=== PATIENT | female | born 1955 | race African-American/Black ===

== ENCOUNTER 2016-12-30 15:22 | Emergency (ER) | payer MEDICAID, OTHER ==
[~2016-12-30] VITALS: Ht 160 cm; Wt 60.0 kg
[~2016-12-30 15:22] MED LIST: ASPI-1160 PO; HYDR12.518 PO; TOPXL5 PO
[2016-12-30] MEDS ORDERED: MORPHINE SULFATE 4 MG/ML CPJ (NOT FOR IM USE) IV ONE (19:30)
[2016-12-30 19:54] LABS: BASOPHILS % 0.6 % (0.0-2.0); EOSINOPHILS % 0.8 % (0.0-5.0); HEMOGLOBIN. 13.5 g/dL (12.0-16.0); LYMPHOCYTES % 40.5 % (20.0-50.0); MEAN CORPUSCULAR HEMOGLOBIN 29.6 pg (28.0-32.0); MEAN CORPUSCULAR VOLUME 87.3 fL (81.0-99.0); MEAN PLATELET VOLUME 9.7 fl (7.4-10.4); MONOCYTES % 6.1 % (2.0-8.0); PLATELET 190 x1000/uL (130-400); RED BLOOD CELL COUNT 4.58 mill/uL (4.2-5.4); RED CELL DISTRIBUTION WIDTH 13.8 % (11.6-14.6)
[2016-12-30 20:05] LABS: INR 1.1; PARTIAL THROMBOPLASTIN TIME 25.5 sec (23.4-31.0); PROTHROMBIN TIME 11.2 sec (9.4-11.6)
[2016-12-30 20:06] LABS: CHLORIDE 105 mEq/L (98-107)
[2016-12-30 20:10] LABS: CARBON DIOXIDE 27 mEq/L (21-32)
[2016-12-30 20:16] LABS: TROPONIN I < 0.02 ng/mL (0.00-0.04)
[2016-12-30] MEDS ORDERED: HYDROCODONE/APAP 7.5/325MG 1 TAB TABLET PO ONE (20:30)
[2016-12-30 23:51] VITALS: BP 128/69
== END 2016-12-30 23:52 | disposition home or self-care (01) ==
LOC: ER 15:59
DX: R07.9 Chest pain, unspecified (principal); R51 Headache; I10 Essential (primary) hypertension; F12.10 Cannabis abuse, uncomplicated; Z98.51 Tubal ligation status; Z79.82 Long term (current) use of aspirin
CPT/HCPCS: 36415; 70450; 71010; 80053; 83690; 84484; 85025; 85610; 85730; 93005; 96374; 99285; J2270; Z7610

== ENCOUNTER 2017-02-09 06:18 | Inpatient (IN) | payer OTHER ==
[~2017-02-09] VITALS: Ht 170.2 cm; Wt 96.2 kg
[2017-02-09] MEDS ORDERED: ASPIRIN 81MG TABLET PO STA (07:08)
[2017-02-09 07:40] LABS: CHLORIDE 105 mEq/L (98-107)
[2017-02-09 07:49] LABS: BASOPHILS % 0.5 % (0.0-2.0); CARBON DIOXIDE 30 mEq/L (21-32); EOSINOPHILS % 0.9 % (0.0-5.0); HEMATOCRIT. 42.2 % (36.0-48.0); HEMOGLOBIN. 14.3 g/dL (12.0-16.0); LYMPHOCYTES % 30.4 % (20.0-50.0); MEAN CORPUSCULAR VOLUME 88.6 fL (81.0-99.0); MEAN PLATELET VOLUME 10.3 fl (7.4-10.4); MONOCYTES % 6.6 % (2.0-8.0); NEUTROPHILS % 61.6 % (40.0-76.0); PLATELET 170 x1000/uL (130-400); RED BLOOD CELL COUNT 4.76 mill/uL (4.2-5.4); TROPONIN I < 0.02 ng/mL (0.00-0.04)
[2017-02-09 07:54] LABS: INR 1.1; PARTIAL THROMBOPLASTIN TIME 25.3 sec (23.4-31.0)
[2017-02-09] MEDS ORDERED: ONDANSETRON HCL 4MG/2ML VIAL IV ONE (08:00)
[2017-02-09] MEDS ORDERED: MORPHINE SULFATE 10 MG/ML CPJ IV ONE (08:00)
[2017-02-09 09:45] VITALS: BP 117/69
[2017-02-09] MEDS ORDERED: GUAIFENESIN 200MG/10ML SUGAR FREE UDC PO PRN (09:45)
[2017-02-09] MEDS ORDERED: CLONIDINE 0.1MG TABLET PO PRN (09:45)
[2017-02-09] MEDS ORDERED: ONDANSETRON HCL 4MG/2ML VIAL IV PRN (09:45)
[2017-02-09] MEDS ORDERED: HYDROCODONE/ACETAMINOPHEN 5/325MG TABLET PO PRN (09:45)
[2017-02-09] MEDS ORDERED: ACETAMINOPHEN 325MG TABLET PO PRN (09:45)
[2017-02-09] MEDS ORDERED: LORAZEPAM 2MG/ML CPJ IV PRN (09:45)
[2017-02-09] MEDS ORDERED: NA PHOS,M-B/NA PHOS,DI-BA ENEMA 118ML PR PRN (09:45)
[2017-02-09] MEDS ORDERED: DOCUSATE SODIUM 100MG CAPSULE PO PRN (09:45)
[2017-02-09] MEDS ORDERED: DIPHENHYDRAMINE 50MG/ML VIAL IV PRN (09:45)
[2017-02-09] MEDS ORDERED: IPRATROPIUM/ALBUTEROL 0.5-3(2.5)MG/3ML NEB INH PRN (09:45)
[2017-02-09] MEDS ORDERED: MAGNESIUM/ALUMINUM HYDROXIDE/SIMETHICONE 30ML UDC PO PRN (09:45)
[2017-02-09] MEDS ORDERED: MORP15TA67 PO (09:52)
[2017-02-09] MEDS ORDERED: HYDR-519 PO (09:56)
[2017-02-09] MEDS ORDERED: LORA10TA7 PO (09:56)
[2017-02-09] MEDS ORDERED: TRIA1TAB94 PO (09:56)
[2017-02-09] MEDS ORDERED: NAPR-681 PO (09:56)
[2017-02-09] MEDS ORDERED: TRAM50TA3 PO (09:56)
[2017-02-09] MEDS ORDERED: CLON0.2T PO (09:56)
[2017-02-09] MEDS ORDERED: DEXTROSE 50% WATER 50ML SYRINGE IV PRN (10:00)
[2017-02-09] MEDS ORDERED: REGADENOSON 0.4 MG/5 ML IV ONE (10:45)
[2017-02-09 11:27] VITALS: BP 117/69
[2017-02-09 11:44] LABS: CARBON DIOXIDE 28 mEq/L (21-32); CHLORIDE 105 mEq/L (98-107)
[2017-02-09] MEDS: BLOOD SUGAR DIAGNOSTIC STRIP TEST SCH ×3 (12:23→20:19)
[2017-02-09 12:45] VITALS: BP 107/56
[2017-02-09 12:46] LABS: T4 FREE 1.14 ng/dL (0.76-1.46)
[2017-02-09] MEDS: INSULIN LISPRO 100 UNITS/ML SUBCUT SCH ×3 (12:49→20:19)
[2017-02-09] MEDS: ENOXAPARIN 40MG/0.4ML SYR SUBCUT SCH (13:47)
[2017-02-09] MEDS: HYDROMORPHONE HCL/PF 2MG/ML CPJ IV PRN ×2 (14:55→22:07)
[2017-02-09 15:26] LABS: CREATINE KINASE 365 IU/L (26-192); CREATINE KINASE MB FRACTION 4.3 ng/mL (0.5-3.6); TROPONIN I < 0.02 ng/mL (0.00-0.04)
[2017-02-09 16:28] VITALS: BP 127/64
[2017-02-09 17:44] LABS: CLARITY URINE CLOUDY (CLEAR); COLOR URINE DARK YELLOW (YELLOW); GLUCOSE URINE NEGATIVE (NEGATIVE); KETONES URINE TRACE (NEGATIVE); LEUKOCYTE ESTERASE URINE NEGATIVE (NEGATIVE); NITRITE URINE NEGATIVE (NEGATIVE); OCCULT BLOOD URINE NEGATIVE (NEGATIVE); PROTEIN URINE NEGATIVE (NEGATIVE); SPECIFIC GRAVITY URINE 1.038 (1.005-1.030)
[2017-02-09 18:35] LABS: *AMPHETAMINES SCREEN URINE NEGATIVE (NEGATIVE); *BARBITURATES SCREEN URINE NEGATIVE (NEGATIVE); *BENZODIAZEPINES SCREEN URINE NEGATIVE (NEGATIVE); *COCAINE SCREEN URINE NEGATIVE (NEGATIVE); CANNABINOID URINE SCREEN PRESUMTIVE POSITIVE (NEGATIVE); METHADONE URINE SCREEN NEGATIVE (NEGATIVE); OPIATES URINE SCREEN PRESUMTIVE POSITIVE (NEGATIVE); PHENCYCLIDINE URINE SCREEN NEGATIVE (NEGATIVE)
[2017-02-09 20:00] VITALS: BP 146/58
[2017-02-09] MEDS ORDERED: ZOLPIDEM TARTRATE 5MG TABLET PO PRN (20:45)
[2017-02-10] VITALS: BP 134/61
[2017-02-10 00:38] LABS: CREATINE KINASE 354 IU/L (26-192); CREATINE KINASE MB FRACTION 3.8 ng/mL (0.5-3.6); TROPONIN I < 0.02 ng/mL (0.00-0.04)
[2017-02-10] MEDS: HYDROMORPHONE HCL/PF 2MG/ML CPJ IV PRN ×2 (01:59→10:19)
[2017-02-10 04:00] VITALS: BP 186/74
[2017-02-10] MEDS: BLOOD SUGAR DIAGNOSTIC STRIP TEST SCH ×2 (06:56→12:20)
[2017-02-10 07:23] VITALS: BP 194/87
[2017-02-10 07:44] LABS: BASOPHILS % 0.3 % (0.0-2.0); EOSINOPHILS % 1.1 % (0.0-5.0); HEMATOCRIT. 41.8 % (36.0-48.0); HEMOGLOBIN. 14.1 g/dL (12.0-16.0); MEAN CORPUSCULAR HEMOGLOBIN 29.8 pg (28.0-32.0); MEAN CORPUSCULAR VOLUME 88.3 fL (81.0-99.0); MEAN PLATELET VOLUME 10.1 fl (7.4-10.4); MONOCYTES % 7.6 % (2.0-8.0); PLATELET 151 x1000/uL (130-400); RED BLOOD CELL COUNT 4.73 mill/uL (4.2-5.4); RED CELL DISTRIBUTION WIDTH 13.6 % (11.6-14.6)
[2017-02-10] MEDS: INSULIN LISPRO 100 UNITS/ML SUBCUT SCH ×2 (07:50→12:50)
[2017-02-10] MEDS ORDERED: ASPIRIN 81MG TABLET PO SCH (09:00)
[2017-02-10] MEDS: ENOXAPARIN 40MG/0.4ML SYR SUBCUT SCH (09:00)
[2017-02-10] MEDS ORDERED: ASPIRIN 81MG EC TABLET PO SCH (09:00)
[2017-02-10 09:03] LABS: CARBON DIOXIDE 27 mEq/L (21-32); CHLORIDE 103 mEq/L (98-107); CREATINE KINASE 355 IU/L (26-192); CREATINE KINASE MB FRACTION 4.3 ng/mL (0.5-3.6); HDL CHOLESTEROL 24 mg/dL (40-59); LDL CHOLESTEROL 94 mg/dL (5-100)
[2017-02-10] MEDS ORDERED: CLONIDINE 0.2MG TABLET PO SCH (09:15)
[2017-02-10 11:18] VITALS: BP 129/78
[2017-02-10] MEDS ORDERED: REGADENOSON 0.4 MG/5 ML IV ONE (12:34)
[2017-02-10 14:55] VITALS: BP 129/78
== END 2017-02-10 15:20 | disposition home or self-care (01) | DRG 201 ==
LOC: ER 06:18 → 6WST 07:40 → EDBEDREQ 07:44 → EDBEDREQTM 07:44 → ENRESERV 08:28
PROVIDERS: ADMIT Internal Medicine; ATTEND Internal Medicine
DX: I48.1 Persistent atrial fibrillation (principal); I10 Essential (primary) hypertension; I25.10 Atherosclerotic heart disease of native coronary artery without angina pectoris; E11.9 Type 2 diabetes mellitus without complications; E78.5 Hyperlipidemia, unspecified; F17.210 Nicotine dependence, cigarettes, uncomplicated; I25.2 Old myocardial infarction; Z79.82 Long term (current) use of aspirin; Z79.899 Other long term (current) drug therapy; Z88.8 Allergy status to other drugs, medicaments and biological substances; Z98.51 Tubal ligation status
CPT/HCPCS: 36415; 71010; 78452; 80048; 80053; 80061; 80305; 81001; 82550; 82553; 82962; 83036; 83880; 84439; 84443; 84484; 85025; 85379; 85610; 85730; 87086; 93005; 93017; 96374; 96375; 99285; A9500; J1170; J1650; J2060; J2270; J2405; J2785

== ENCOUNTER 2020-03-07 17:56 | Inpatient (IN) | payer MEDICARE, MEDICAID ==
[~2020-03-07] VITALS: Ht 170.2 cm; Wt 94.1 kg
[~2020-03-07 17:56] MED LIST changes: -ASPI-1160 PO; +CLON0.2T PO; +HYDR-519 PO; -HYDR12.518 PO; +LORA10TA7 PO; +MORP15TA67 PO; +NAPR-681 PO; -TOPXL5 PO; +TRAM50TA3 PO; +TRIA1TAB94 PO
[2020-03-07 19:12] LABS: BASOPHILS % 0.6 % (0.0-2.0); EOSINOPHILS % 0.6 % (0.0-5.0); HEMATOCRIT. 41.6 % (36.0-48.0); LYMPHOCYTES % 29.4 % (20.0-50.0); MEAN CORPUSCULAR HEMOGLOBIN 29.4 pg (28.0-32.0); MEAN CORPUSCULAR VOLUME 87.2 fL (81.0-99.0); MEAN PLATELET VOLUME 9.3 fl (7.4-10.4); MONOCYTES % 8.1 % (2.0-8.0); NEUTROPHILS % 61.3 % (40.0-76.0); PLATELET 216 x1000/uL (130-400); RED BLOOD CELL COUNT 4.77 mill/uL (4.2-5.4); RED CELL DISTRIBUTION WIDTH 14.4 % (11.6-14.6)
[2020-03-07 19:19] LABS: CHLORIDE 106 mEq/L (98-107)
[2020-03-07 19:25] LABS: PROTHROMBIN TIME 10.6 sec (9.6-11.0)
[2020-03-07] MEDS ORDERED: MORPHINE SULFATE 4 MG/ML CPJ (NOT FOR IM USE) IV STA (20:23)
[2020-03-07] MEDS ORDERED: ONDANSETRON HCL 4MG/2ML INJ IV STA (20:23)
[2020-03-07] MEDS ORDERED: SODIUM CHLORIDE 0.9% 1,000 ML IV ONE (20:30)
[2020-03-07 23:26] LABS: CLARITY URINE CLEAR (CLEAR); COLOR URINE YELLOW (YELLOW); KETONES URINE NEGATIVE (NEGATIVE); LEUKOCYTE ESTERASE URINE TRACE (NEGATIVE); NITRITE URINE NEGATIVE (NEGATIVE); OCCULT BLOOD URINE NEGATIVE (NEGATIVE); PROTEIN URINE NEGATIVE (NEGATIVE); SPECIFIC GRAVITY URINE 1.021 (1.005-1.030)
[2020-03-07] MEDS ORDERED: ASPIRIN 81MG TABLET PO ONE (23:45)
[2020-03-08] MEDS ORDERED: CEFTRIAXONE 1 G PREMIX 50 ML IV ONE (01:00)
[2020-03-08] MEDS ORDERED: MORPHINE SULFATE 4 MG/ML CPJ (NOT FOR IM USE) IV NR (01:00)
[2020-03-08] MEDS ORDERED: ONDANSETRON HCL 4MG/2ML INJ IV NR (01:00)
[2020-03-08 05:35] VITALS: BP 153/46
[2020-03-08] MEDS ORDERED: MORP15TA54 PO (06:44)
[2020-03-08] MEDS ORDERED: OXYC10TA48 PO (06:44)
[2020-03-08] MEDS ORDERED: METF-414 PO (06:44)
[2020-03-08] MEDS ORDERED: CLON-457 PO (06:44)
[2020-03-08] MEDS ORDERED: NIFE-33 PO (06:44)
[2020-03-08] MEDS ORDERED: HYDR-4135 PO (06:44)
[2020-03-08 08:00] VITALS: BP 164/65
[2020-03-08] MEDS ORDERED: OXYCODONE HCL 5MG TABLET PO PRN (08:15)
[2020-03-08] MEDS: ONDANSETRON HCL 4MG/2ML INJ IV PRN (08:29)
[2020-03-08] MEDS: NIFEDIPINE XL 30MG TAB PO SCH (08:29)
[2020-03-08 12:00] VITALS: BP 124/76
[2020-03-08] MEDS ORDERED: KETOROLAC 30MG/ML VIAL IV PRN (12:30)
[2020-03-08] MEDS ORDERED: POTASSIUM CHLORIDE 20MEQ TABLET SR PO NR (12:30)
[2020-03-08] MEDS: HYDRALAZINE HCL 50MG TABLET PO SCH ×2 (13:00→20:29)
[2020-03-08 16:00] VITALS: BP 105/78
[2020-03-08 16:00] LABS: HEPATITIS B SURFACE ANTIGEN NEGATIVE
[2020-03-08] MEDS ORDERED: TRAMADOL 50MG TABLET PO PRN (16:15)
[2020-03-08 16:30] LABS: HEPATITIS A AB IGM NEGATIVE (NEGATIVE)
[2020-03-08] MEDS: METFORMIN HCL 500MG TABLET PO SCH (17:52)
[2020-03-08 20:00] VITALS: BP 156/67
[2020-03-08] MEDS: FAMOTIDINE 20MG/2ML VIAL IV SCH (20:06)
[2020-03-08] MEDS ORDERED: LACTULOSE 20G/30ML UDC PO PRN (21:00)
[2020-03-09] VITALS (7 sets, daily range): BP systolic 131–176; BP diastolic 56–80
[2020-03-09] MEDS: OXYCODONE HCL 5MG TABLET PO PRN ×2 (00:03→11:02)
[2020-03-09] MEDS: ONDANSETRON HCL 4MG/2ML INJ IV PRN ×2 (00:11→11:02)
[2020-03-09] MEDS: CLONIDINE 0.1MG TABLET PO PRN ×2 (00:25→11:10)
[2020-03-09] MEDS: HYDRALAZINE HCL 50MG TABLET PO SCH ×2 (05:11→14:22)
[2020-03-09 07:19] LABS: BASOPHILS % 0.5 % (0.0-2.0); EOSINOPHILS % 0.8 % (0.0-5.0); HEMATOCRIT. 42.4 % (36.0-48.0); HEMOGLOBIN. 14.2 g/dL (12.0-16.0); LYMPHOCYTES % 32.9 % (20.0-50.0); MEAN CORPUSCULAR HEMOGLOBIN 29.3 pg (28.0-32.0); MEAN CORPUSCULAR VOLUME 87.3 fL (81.0-99.0); MEAN PLATELET VOLUME 9.4 fl (7.4-10.4); MONOCYTES % 7.9 % (2.0-8.0); NEUTROPHILS % 57.9 % (40.0-76.0); PLATELET 221 x1000/uL (130-400); RED BLOOD CELL COUNT 4.85 mill/uL (4.2-5.4); RED CELL DISTRIBUTION WIDTH 14.1 % (11.6-14.6)
[2020-03-09 07:21] LABS: PROTHROMBIN TIME 10.9 sec (9.6-11.0)
[2020-03-09] MEDS: METFORMIN HCL 500MG TABLET PO SCH (07:50)
[2020-03-09 08:12] LABS: CHLORIDE 107 mEq/L (98-107)
[2020-03-09] MEDS: NIFEDIPINE XL 30MG TAB PO SCH (08:23)
[2020-03-09] MEDS: FAMOTIDINE 20MG/2ML VIAL IV SCH (08:37)
== END 2020-03-09 14:48 | disposition home or self-care (01) | DRG 391 ==
LOC: ER 17:56 → EDBEDREQDT 03-08 00:12 → EDBEDREQTM 03-08 00:12 → EDBEDREQ 03-08 00:12 → ENRESERV 03-08 03:05 → 6WST 03-08 05:56
PROVIDERS: ADMIT Internal Medicine; ATTEND Internal Medicine
DX: K21.9 Gastro-esophageal reflux disease without esophagitis (principal); K83.1 Obstruction of bile duct; N39.0 Urinary tract infection, site not specified; E11.9 Type 2 diabetes mellitus without complications; E78.5 Hyperlipidemia, unspecified; K57.90 Diverticulosis of intestine, part unspecified, without perforation or abscess without bleeding; I10 Essential (primary) hypertension; K76.0 Fatty (change of) liver, not elsewhere classified; E66.09 Other obesity due to excess calories; K82.4 Cholesterolosis of gallbladder; F14.90 Cocaine use, unspecified, uncomplicated; Z20.828 Contact with and (suspected) exposure to other viral communicable diseases; R16.0 Hepatomegaly, not elsewhere classified; Z88.8 Allergy status to other drugs, medicaments and biological substances; Z98.51 Tubal ligation status; Z79.899 Other long term (current) drug therapy; I25.2 Old myocardial infarction; Z79.1 Long term (current) use of non-steroidal anti-inflammatories (NSAID); Z71.3 Dietary counseling and surveillance; Z68.32 Body mass index [BMI] 32.0-32.9, adult
CPT/HCPCS: 36415; 71045; 74176; 74181; 76705; 78227; 80053; 81003; 82962; 84484; 85025; 86705; 86709; 86803; 87340; 87426; 93005; 99285; A9537; J0696; J1885; J2270; J2405; J3490; J7030